=== PATIENT | male | born 1955 | race African-American/Black ===

== ENCOUNTER 2024-12-08 15:30 | Emergency (ER) | payer MEDICARE, BC, SELFPAY ==
[2024-12-08] VITALS (20 sets, daily range): BP systolic 119–173; BP diastolic 67–99; PULSE 73–114; RESP 12–22; TEMP 36.6–36.9; O2SAT 100
--- NOTE | ~2024-12-08 | CT_ITS ---
IMPRESSION: Fecal stasis distending the rectum suggesting fecal impaction. Common bile duct and pancreatic duct dilatation. Severe bullous emphysematous disease, with collapse/consolidation of the caudal margin of the right upper lobe, as detailed above. EXAMINATION: CTA chest PE abdomen pel DATE: 12/08/2024 19:48 CDT INDICATION: Shortness of breath with chest and abdominal pain TECHNIQUE: Computed tomographic angiography (CTA) of the chest was performed, along with multiple con tiguous axial images of the abdomen and pelvis with 100 mL Omnipaque-350 intravenous contrast. The do se-length product was 419.54 mGy-cm. Maximum intensity projection 3D-reconstructions of the aorta and other arteries were constructed by the technologist on a separate workstation. FINDINGS/OBSERVATIONS: PULMONARY ARTERIES: No filling defect is identified within the main or proximal pulmonary artery. The main pulmonary artery is not enlarged. THORACIC AORTA: No aneurysmal dilatation or dissection is present. The great vessels are intact LUNGS: Right apical bullous emphysematous change is present. Consolidation of the inferior segment of the right upper lobe. Subpleural bullous formation within the left lung. The remainder of the lungs are clear. MEDIASTINUM: No morphologically suspicious or pathologically enlarged lymph nodes are identified with in the mediastinum or bilateral axilla. BONES OF THE CHEST: No acute fracture. No significant degenerative disease. No lytic or blastic lesions. HEART: The heart is of normal size, without pericardial effusion. LIVER: The liver enhances homogeneously and is not enlarged. GALLBLADDER AND BILIARY SYSTEM: The gallbladder is decompressed, and otherwise unremarkable. The common bile duct is distended measuring 8.2 mm. PANCREAS: The pancreas enhances homogeneously. Prominence of the pancreatic duct is noted measuring 4 mm within the head of the pancreas. SPLEEN: The spleen enhances homogeneously and is not enlarged measuring 8 cm in longitudinal dimension. KIDNEYS: The bilateral kidneys enhance symmetrically without hydronephrosis or renal calculi. ADRENAL GLANDS: Unremarkable. GASTROINTESTINAL TRACT: Percutaneous gastrostomy within the stomach. Fecal stasis distending the rectum. Enteric staple line within the distal sigmoid colon APPENDIX: The appendix is not definitively visualized. However, no pericecal inflammatory change is identified suggest the presence of acute appendicitis. VASCULATURE: Calcified atherosclerotic disease without aneurysmal dilatation. LYMPH NODES: No pathologically enlarged or morphologically suspicious lymph nodes within the retroperitoneum or at the root of the mesentery. PELVIC STRUCTURES: The bladder is decompressed with a Alba catheter, limiting its evaluation. The prostate gland is not enlarged. BODY WALL AND MUSCULOSKELETAL: Age-appropriate degenerative disease within the lumbosacral spine. 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 Common bile duct and pancreatic duct dilatation. Severe bullous emphysematous disease, with collapse/consolidation of the caudal margin of the right u pper lobe, as detailed above. Reviewed, dictated and finalized at location A.
--- NOTE | 2024-12-08 16:37 | ED_ITS ---
HPI - SOB/Dyspnea General Chief Complaint: Shortness of Breath/Dyspnea <Sarai Alford PA-C - Last Filed: 12/08/24 16:52> Stated Complaint: Shortness of breath, abd pain, constipation <Sarai Alford PA-C - Last Filed: 12/08/24 16:52> Time Seen by Provider: 12/08/24 16:37 <Sarai Alford PA-C - Last Filed: 12/08/24 16:52> Focused HPI: patient is a 69-year-old male, with PMH of COPD, HTN, who presents the ED with report of abdominal pain, shortness of breath, constipation. Patient reports he has been having diffuse abdominal pain and constipation for the past 2 days. he states his stomach feels bloated. Feels nauseous. Denies vomiting. He also reports feeling more short of breath than usual. Does chronically wear 2 L home O2 at all times. Reports chest tightness, recent productive cough. Patient currently residing at [facility] for rehab. He reports recent abdominal surgery around 1 month ago, with placement of G-tube. He is unsure what type of surgery. Thinks this was performed at [facility]? GENERAL: Ill appearing, thin, and in mild acute distress. HEAD: Normocephalic, atraumatic. CHEST: Raspy gurgling cough. Mild rhonchi in bases. Tachypneic. On 2L HEART: Tachycardic with regular rhythm.? ABD: Abdomen is somewhat firm and diffusely tender with any palpation. Normoactive BS NEURO: ?Alert and oriented x3. Diffusely tremulous. Patient screened in triage and initial orders placed.? ?Additional care and disposition to be based upon?diagnostic testing and treatment. <Sarai Alford PA-C - Last Filed: 12/08/24 16:52> Focused HPI: patient is a 69-year-old male, with PMH of COPD, HTN, who presents the ED with report of abdominal pain, shortness of breath, constipation. Patient reports he has been having diffuse abdominal pain and constipation for the past 2 days. he states his stomach feels bloated. Feels nauseous. Denies vomiting. He also reports feeling more short of breath than usual. Does chronically wear 2 L home O2 at all times. Reports chest tightness, recent productive cough. Patient currently residing at [facility] for rehab. He reports recent abdominal surgery around 1 month ago, with placement of G-tube. He is unsure what type of surgery. Thinks this was performed at [facility] GENERAL: Ill appearing, thin, and in mild acute distress. HEAD: Normocephalic, atraumatic. CHEST: Raspy gurgling cough. Mild rhonchi in bases. Tachypneic. On 2L HEART: Tachycardic with regular rhythm.? ABD: Abdomen is somewhat firm and diffusely tender with any palpation. Normoactive BS NEURO: ?Alert and oriented x3. Diffusely tremulous. Patient screened in triage and initial orders placed.? ?Additional care and disposition to be based upon?diagnostic testing and treatment. <BERNICE Garcia Last Filed: 12/08/24 23:30> Source: patient <BERNICE Schroeder Last Filed: 12/08/24 16:52> Mode of arrival: EMS <BERNICE Schroeder Last Filed: 12/08/24 16:52> Limitations: no limitations <BERNICE Schroeder Last Filed: 12/08/24 16:52> Related Data Allergies/Adverse Reactions: Allergies Allergy/AdvReac Type Severity Reaction Status Date / Time No Known Allergies Allergy Verified 12/08/24 15:32 <BERNICE Schroeder Last Filed: 12/08/24 16:52> Review of Systems 2 Review of Systems: CONSTITUTIONAL: Denies fever CARDIOVASCULAR: Denies chest pain RESPIRATORY: Reports cough and dyspnea. GASTROINTESTINAL: Reports abdominal pain, nausea. Denies vomiting, or diarrhea. GENITOURINARY: Denies hematuria. <BERNICE Garcia Last Filed: 12/08/24 23:30> All systems reviewed & are unremarkable except as noted in HPI and below < BERNICE Garcia Last Filed: 12/08/24 23:30> PMFSH Past Medical History Medical History: Medical History (Updated 12/08/24 @ 23:26 by Barbara Turner PA-C) Sleep apnea Chronic respiratory failure History of anemia History of hyperlipidemia History of gastroesophageal reflux (GERD) History of hypertension History of COPD <Sarai Alford PA-C - Last Filed: 12/08/24 16:52> Exam 2 Narrative: GENERAL: Chronically ill-appearing, thin, and in no acute distress. HEAD: Normocephalic, atraumatic. EYES: EOMI. ENT: Nares clear, no rhinorrhea or epistaxis. Mucous membranes moist. Oropharynx without tonsillar hypertrophy exudate or other lesions. CHEST: No respiratory distress. Rales at the bases. No wheezes or rhonchi HEART: Regular rate and rhythm. No murmur heard. Normal peripheral pulses. ABDOMEN: Soft, nondistended, normal active bowel sounds. Mild tenderness to palpation throughout the abdomen, without guarding. PEG tube in place EXTREMITIES: Normal range of motion. No edema. SKIN: Warm, dry, no rash. NEURO: No focal deficits. Alert and oriented x3. PSYCH: Normal mood and affect <Barbara Turner PA-C - Last Filed: 12/08/24 23:30> Course Course Emergency Course: Patient updated on workup and agrees with plan of care <Barbara Turner PA-C - Last Filed: 12/08/24 23:30> Vital Signs Vital signs: Vital Signs Temperature 98.2 F 12/08/24 15:55 Pulse Rate 114 H 12/08/24 15:55 Respiratory Rate 22 H 12/08/24 15:55 Blood Pressure 173/99 H 12/08/24 15:55 Pulse Oximetry 100 12/08/24 15:55 Oxygen Delivery Nasal Cannula 12/08/24 15:55 Oxygen Flow Rate 2 12/08/24 15:55 Temperature 97.8 F 12/08/24 19:42 Pulse Rate 102 H 12/08/24 21:22 Respiratory Rate 22 H 12/08/24 21:22 Blood Pressure 123/71 12/08/24 21:01 Pulse Oximetry 100 12/08/24 21:22 Oxygen Delivery Nasal Cannula 12/08/24 17:30 Oxygen Flow Rate 2 12/08/24 17:30 <Sarai Alford PA-C - Last Filed: 12/08/24 16:52> Vital Signs Temperature 98.2 F 12/08/24 15:55 Pulse Rate 114 H 12/08/24 15:55 Respiratory Rate 22 H 12/08/24 15:55 Blood Pressure 173/99 H 12/08/24 15:55 Pulse Oximetry 100 12/08/24 15:55 Oxygen Delivery Nasal Cannula 12/08/24 15:55 Oxygen Flow Rate 2 12/08/24 15:55 Temperature 97.8 F 12/08/24 19:42 Pulse Rate 102 H 12/08/24 21:22 Respiratory Rate 22 H 12/08/24 21:22 Blood Pressure 123/71 12/08/24 21:01 Pulse Oximetry 100 12/08/24 21:22 Oxygen Delivery Nasal Cannula 12/08/24 17:30 Oxygen Flow Rate 2 12/08/24 17:30 <BERNICE Garcia Last Filed: 12/08/24 23:30> MDM - SOB/Dyspnea MDM Narrative Medical decision making narrative: MSE by SHARONDA in triage. <BERNICE Schroeder Last Filed: 12/08/24 16:52> MSE by SHARONDA in triage. Patient presents the emergency department with cough, shortness of breath, abdominal pain, constipation. He is afebrile and nontoxic appearing. Tachycardic upon arrival, this normalized without intervention oxygen saturation is stable on patient's 2 L nasal cannula he chronically wears. He is afebrile and nontoxic appearing. Cbc without leukocytosis. Shows normocytic anemia hemoglobin 10.1. Metabolic panel without concerning findings. Patient was not able to urinate. Around 300 in his bladder on bladder scan. Alba catheter placed. Urine without evidence of infection. Influenza, RSV and COVID screens are negative. CTA chest/abdomen/pelvis obtained for further evaluation. Shows fecal impaction. Severe bolus emphysema with consolidation in the right upper lobe. Patient was given an enema with moderate success. Will be continued on laxatives, stool softeners as needed. Given 1st dose of antibiotics IV. Will be discharged on oral antibiotics. He was given warnings to return to the ER < BERNICE Garcia Last Filed: 12/08/24 23:30> Differential Diagnosis Differential diagnosis: Likely acute exacerbation of chronic obstructive airways disease, community acquired pneumonia and other (Constipation, SBO) <ADELAIDA Garcia - Last Filed: 12/08/24 23:30> Lab Data Attestation: I reviewed the patient's lab results. <Barbara Turner PA-C - Last Filed: 12/08/24 23:30> Result diagrams: 12/08/24 17:36 12/08/24 17:36 <Sarai Alford PA-C - Last Filed: 12/08/24 16:52> Labs: Lab Results 12/08/24 12/08/24 Range/Units 17:36 17:36 WBC 9.4 (4.5-10.0) K/mm3 RBC 3.69 L (4.6-6.20) M/mm3 Hgb 10.1 L (14.0-18.0) g/dL Hct 33.8 L (42.0-52.0) % MCV 91.6 (80-100) fl MCH 27.4 (26-34) pg MCHC 29.9 L (32-36) g/dl RDW 14.6 H (11.5-14.5) % Plt Count 463 H (150-375) k/mm3 MPV 8.5 (7.4-10.4) fl Immature Gran % (Auto) 0.5 (0-0.5) % Neut % (Auto) 75.3 H (45.5-73.1) % Lymph % (Auto) 15.3 L (18.3-44.2) % Grand % (Auto) 7.8 (2.6-8.5) % Eos % (Auto) 0.6 (0-4.4) % Baso % (Auto) 0.5 (0.2-1.2) % Lymph # (Auto) 1.43 (0.9-3.2) K/mm3 Grand # (Auto) 0.7 H (0.1-0.6) K/mm3 Eos # (Auto) 0.1 (0-0.3) K/mm3 Baso # (Auto) 0.1 (0.0-0.1) K/mm3 Abs Immat Gran (auto) 0.05 H (0.00-0.031) K/mm3 Absolute Neuts (auto) 7.0 H (1.3-6.7) K/mm3 Absolute Nucleated RBC 0.000 (0.0-0.012) K/mm3 Band Neutrophils % Not Reportable Nucleated RBC % 0.0 (0.0-0.2) % Platelet Estimate Increased (Adequate) Hypochromasia 1+ Schistocytes None seen PT 13.9 (11.1-14.7) Seconds INR 1.0 APTT 36.8 (22.3-36.8) Seconds Sodium 132 L (137-145) mmol/L Potassium 4.3 (3.4-5.0) mmol/L Chloride 95 L (98-107) mmol/L Carbon Dioxide 27 (22-30) mmol/L Anion Gap 10 (4-12) mmol/L BUN 14 (9-20) mg/dL Creatinine 0.38 L (0.7-1.3) mg/dL Estim Creat Clear Calc 116 ml/min Estimated GFR > 60 (59 - ) Glucose 103 (65-110) mg/dL Calcium 9.3 (8.4-10.2) mg/dL Total Bilirubin 0.4 (0.2-1.3) mg/dL AST 30 (17-59) U/L ALT 19 (6-50) U/L Alkaline Phosphatase 66 (38-126) U/L Troponin I < 0.012 (0.000-0.034) ng/mL NT-Pro-B Natriuret Pep 401 H (19.9-100) pg/mL Total Protein 8.0 (6.3-8.2) g/dL Albumin 4.1 (3.5-5.1) g/dL Lipase 173 Cancelled (23-300) U/L Urine Color Yellow (Yellow) Urine Appearance Clear (Clear) Urine pH 7.0 (5.0-9.0) Ur Specific Hughes 1.019 (1.001-1.035) Urine Protein Negative (Negative) mg/dL Urine Glucose (UA) Negative (Negative) mg/dL Urine Ketones Negative (Negative) mg/dL Ur Blood (Man) Negative (Negative) Urine Nitrate Negative (Negative) Urine Bilirubin Negative (Negative) Urine Urobilinogen 1.0 (<2.0) mg/dL Leukocyte Esterase Rfl Negative (Negative) VIOLETA/UL Influenza A (RT-PCR) Negative (Negative) Influenza B (RT-PCR) Negative (Negative) RSV (RT-PCR) Negative (Negative) SARS-CoV-2 RNA (RT-PCR) Negative (Negative) <Sarai Alford PA-C - Last Filed: 12/08/24 16:52> Lab Results 12/08/24 12/08/24 Range/Units 17:36 17:36 WBC 9.4 (4.5-10.0) K/mm3 RBC 3.69 L (4.6-6.20) M/mm3 Hgb 10.1 L (14.0-18.0) g/dL Hct 33.8 L (42.0-52.0) % MCV 91.6 (80-100) fl MCH 27.4 (26-34) pg MCHC 29.9 L (32-36) g/dl RDW 14.6 H (11.5-14.5) % Plt Count 463 H (150-375) k/mm3 MPV 8.5 (7.4-10.4) fl Immature Gran % (Auto) 0.5 (0-0.5) % Neut % (Auto) 75.3 H (45.5-73.1) % Lymph % (Auto) 15.3 L (18.3-44.2) % Grand % (Auto) 7.8 (2.6-8.5) % Eos % (Auto) 0.6 (0-4.4) % Baso % (Auto) 0.5 (0.2-1.2) % Lymph # (Auto) 1.43 (0.9-3.2) K/mm3 Grand # (Auto) 0.7 H (0.1-0.6) K/mm3 Eos # (Auto) 0.1 (0-0.3) K/mm3 Baso # (Auto) 0.1 (0.0-0.1) K/mm3 Abs Immat Gran (auto) 0.05 H (0.00-0.031) K/mm3 Absolute Neuts (auto) 7.0 H (1.3-6.7) K/mm3 Absolute Nucleated RBC 0.000 (0.0-0.012) K/mm3 Band Neutrophils % Not Reportable Nucleated RBC % 0.0 (0.0-0.2) % Platelet Estimate Increased (Adequate) Hypochromasia 1+ Schistocytes None seen PT 13.9 (11.1-14.7) Seconds INR 1.0 APTT 36.8 (22.3-36.8) Seconds Sodium 132 L (137-145) mmol/L Potassium 4.3 (3.4-5.0) mmol/L Chloride 95 L (98-107) mmol/L Carbon Dioxide 27 (22-30) mmol/L Anion Gap 10 (4-12) mmol/L BUN 14 (9-20) mg/dL Creatinine 0.38 L (0.7-1.3) mg/dL Estim Creat Clear Calc 116 ml/min Estimated GFR > 60 (59 - ) Glucose 103 (65-110) mg/dL Calcium 9.3 (8.4-10.2) mg/dL Total Bilirubin 0.4 (0.2-1.3) mg/dL AST 30 (17-59) U/L ALT 19 (6-50) U/L Alkaline Phosphatase 66 (38-126) U/L Troponin I < 0.012 (0.000-0.034) ng/mL NT-Pro-B Natriuret Pep 401 H (19.9-100) pg/mL Total Protein 8.0 (6.3-8.2) g/dL Albumin 4.1 (3.5-5.1) g/dL Lipase 173 Cancelled (23-300) U/L Urine Color Yellow (Yellow) Urine Appearance Clear (Clear) Urine pH 7.0 (5.0-9.0) Ur Specific Hughes 1.019 (1.001-1.035) Urine Protein Negative (Negative) mg/dL Urine Glucose (UA) Negative (Negative) mg/dL Urine Ketones Negative (Negative) mg/dL Ur Blood (Man) Negative (Negative) Urine Nitrate Negative (Negative) Urine Bilirubin Negative (Negative) Urine Urobilinogen 1.0 (<2.0) mg/dL Leukocyte Esterase Rfl Negative (Negative) VIOLETA/UL Influenza A (RT-PCR) Negative (Negative) Influenza B (RT-PCR) Negative (Negative) RSV (RT-PCR) Negative (Negative) SARS-CoV-2 RNA (RT-PCR) Negative (Negative) <Barbara Turner PA-C - Last Filed: 12/08/24 23:30> Imaging Data Radiologist's impression: ITS Impressions Chest/Abdomen/Pelvis CTA 12/08/24 19:48 IMPRESSION: Fecal stasis distending the rectum suggesting fecal impaction. Common bile duct and pancreatic duct dilatation. Severe bullous emphysematous disease, with collapse/consolidation of the caudal margin of the right upper lobe, as detailed above. <BERNICE Garcia Last Filed: 12/08/24 23:30> ECG Data EKG #1: ECG completion date: 12/08/24 <BERNICE Garcia Last Filed: 12/08/24 23:30> EKG Interpretation: tachycardia, sinus rhythm, no ST changes and normal QT <BERNICE Garcia Last Filed: 12/08/24 23:30> Critical Care Time Critical Care Time Critical Care Time: No <BERNICE Garcia Last Filed: 12/08/24 23:30> Discharge Plan Discharge Clinical Impression: Acute urinary retention Constipation Qualifiers: Constipation type: unspecified constipation type Qualified Code(s): K59.00 - Constipation, unspecified Community acquired pneumonia Qualifiers: Laterality: right Lung location: upper lobe of lung Qualified Code(s): J18.9 - Pneumonia, unspecified organism <BERNICE Schroeder Last Filed: 12/08/24 16:52> Patient Disposition: NH Fdc/Asst Living <BERNICE Schroeder Last Filed: 12/08/24 16:52> Condition: Improved <BERNICE Schroeder Last Filed: 12/08/24 16:52> Instructions: Constipation (ED), Urinary Retention in Men (ED), Alba Catheter Placement and Care (ED), Community Acquired Pneumonia (ED) <BERNICE Schroeder Last Filed: 12/08/24 16:52> Additional Instructions: Return to the emergency department if you experience fever, chest pain, shortness of breath, abdominal pain with nausea and vomiting, or any other symptoms that are concerning to you. Take Colace and Miralax daily. Take oral antibiotics as prescribed Follow up with primary care doctor <Sarai Alford PA-C - Last Filed: 12/08/24 16:52> Patient Language: Panamanian <Sarai Alford PA-C - Last Filed: 12/08/24 16:52> Prescriptions: New polyethylene glycol 3350 17 gram powder in packet 17 g PO DAILY PRN (Reason: constipation) Qty: 14 0RF docusate sodium 100 mg capsule 100 mg PO DAILY 7 Days Qty: 7 0RF azithromycin 250 mg tablet 250 mg PO DAILY 4 Days Qty: 4 0RF Rx Instructions: start on day 2 of therapy cefdinir 300 mg capsule 300 mg PO Q12H 4 Days Qty: 8 0RF <Sarai Alford PA-C - Last Filed: 12/08/24 16:52> Follow-up/Referrals: Yunior,Suraj Edwards DO [Primary Care Provider] - Baldomero Kelly MD [Physician] - <Sarai Alford PA-C - Last Filed: 12/08/24 16:52> Stand Alone Forms: Correction Discharge <Sarai Alford PA-C - Last Filed: 12/08/24 16:52>
--- NOTE | 2024-12-08 16:41 | ECG_ITS ---
Test Date: 2024-12-08 17:13:55 Measurements Intervals [place] Rate: 116 P: 106 ID: [id number] QRS: 132 QRSD: 84 T: 115 QT: 294 QTc: 410 Interpretive Statements SINUS TACHYCARDIA ARM LEADS REVERSED [INVERTED P AND QRS IN I] ABNORMAL RHYTHM ECG No previous ECG available for comparison Electronically Signed On 12-09-2024 12:39:06 CDT by Elieser Lugo M.D.
[2024-12-08] MEDS: HYDROcodone/acetaminophen (*CRX) 5-325 MG TABLET 1 TAB PO (17:06)
[2024-12-08] MEDS: ONDANSETRON INJ 4 MG/2 ML VIAL IV PUSH (17:39)
[2024-12-08 17:43] LABS: Basophils Absolute Auto 0.1 K/mm3 (0.0-0.1); Basophils Percent Auto 0.5 % (0.2-1.2); Eosinophils Absolute Auto 0.1 K/mm3 (0-0.3); Eosinophils Percent Auto 0.6 % (0-4.4); Hematocrit 33.8 % (42.0-52.0); Hemoglobin 10.1 g/dL (14.0-18.0); Immature Granulocyte Absolute 0.05 K/mm3 (0.00-0.031); Immature Granulocyte Percent A 0.5 % (0-0.5); Lymphocytes Absolute Auto 1.43 K/mm3 (0.9-3.2); Lymphocytes Percent Auto 15.3 % (18.3-44.2); Mean Corpuscular HGB Conc 29.9 g/dl (32-36); Mean Corpuscular Hemoglobin 27.4 pg (26-34); Mean Corpuscular Volume 91.6 fl (80-100); Mean Platelet Volume 8.5 fl (7.4-10.4); Monocytes Absolute Auto 0.7 K/mm3 (0.1-0.6); Monocytes Percent Auto 7.8 % (2.6-8.5); Neutrophils Percent Auto 75.3 % (45.5-73.1); Platelet Count Result 463 k/mm3 (150-375); Red Blood Count 3.69 M/mm3 (4.6-6.20); Red Cell Distribution Width 14.6 % (11.5-14.5); White Blood Count 9.4 K/mm3 (4.5-10.0)
[2024-12-08 17:46] LABS: Add Urine Microscopic? NO; Appearance Urine Clear (Clear); Bilirubin Urine Negative (Negative); Blood Urine Negative (Negative); Color Urine Yellow (Yellow); Glucose Urine UA Negative (Negative); Ketones Urine Negative (Negative); Leukocyte Esterase Ur Negative LEU/UL (Negative); Nitrate Urine Negative (Negative); Protein Urine Negative (Negative); Specific Grav Ur 1.019 (1.001-1.035)
[2024-12-08 17:53] LABS: Alanine Aminotransferase 19 U/L (6-50); Albumin Level 4.1 g/dL (3.5-5.1); Alkaline Phosphatase 66 U/L (38-126); Anion Gap 10 mmol/L (4-12); Aspartate Amino Transferase 30 U/L (17-59); Bilirubin,Total 0.4 mg/dL (0.2-1.3); Blood Urea Nitrogen 14 mg/dL (9-20); Calcium 9.3 mg/dL (8.4-10.2); Carbon Dioxide 27 mmol/L (22-30); Chloride 95 mmol/L (98-107); Estimated CRCL calculation 116 ml/min; Estimated Glomerular Filt Rate > 60; Glucose 103 mg/dL (65-110); Lipase 173 U/L (23-300); Potassium 4.3 mmol/L (3.4-5.0); Sodium 132 mmol/L (137-145)
[2024-12-08 17:57] LABS: Hypochromasia 1+; Platelet Estimate Increased (Adequate)
[2024-12-08 17:58] LABS: Schistocytes None Seen
[2024-12-08 18:01] LABS: Prothrombin Time 13.9 Seconds (11.1-14.7)
[2024-12-08 18:02] LABS: Partial Thromboplastin Time 36.8 Seconds (22.3-36.8)
[2024-12-08 18:05] LABS: NT Pro B Type Natriuretic Pept 401 pg/mL (19.9-100); Troponin I < 0.012 ng/mL (0.000-0.034)
[2024-12-08 18:20] LABS: Influenza A QL RT-PCR Negative (Negative); Influenza B QL RT-PCR Negative (Negative); RSV RNA, RT-PCR Negative (Negative); SARS-CoV-2 RNA PCR Negative (Negative)
--- NOTE | 2024-12-08 19:32 | PC.NURSE ---
Received report from ZEFERINO Mcneil for cont. of care. Pt AOx4 lying on stretcher on 2L via NC with oxygen saturation at 100%. Pt on continous cardiac and pulse oximeter monitor.
[2024-12-08] MEDS: KETOROLAC 15 MG/ML VIAL (*BKC) IV PUSH (21:08)
[2024-12-09 00:04] VITALS: PULSE 71; RESP 14; O2SAT 100
[2024-12-09] MEDS: AZITHROMYCIN 500 MG/NS 250 ML 500 MG/250 ML BAG 250 MG IVPB (00:10)
[2024-12-09 00:25] VITALS: PULSE 76; RESP 14; O2SAT 100
[2024-12-09 01:52] VITALS: BP 115/72; PULSE 82; RESP 17; TEMP 37.1; O2SAT 97
== END 2024-12-09 01:59 ==
PROVIDERS: Physician Assistant; Emergency Provider Physician Assistant; PCP Internal Medicine
DX: J18.9 Pneumonia, unspecified organism (principal); R33.9 Retention of urine, unspecified; K59.00 Constipation, unspecified; Z20.822 Contact with and (suspected) exposure to COVID-19; J96.10 Chronic respiratory failure, unspecified whether with hypoxia or hypercapnia; J44.9 Chronic obstructive pulmonary disease, unspecified; Z99.81 Dependence on supplemental oxygen; I10 Essential (primary) hypertension; E78.5 Hyperlipidemia, unspecified; G47.30 Sleep apnea, unspecified; K21.9 Gastro-esophageal reflux disease without esophagitis; R00.0 Tachycardia, unspecified
CPT/HCPCS: 36415; 71275; 74177; 80053; 81003; 83690; 83880; 84484; 85025; 85610; 85730; 87637; 93005; 96365; 96368; 96375; 99284; A9270; J0456; J0696; J1885; J2405; Q9967